=== PATIENT | female | born 1960 | race Caucasian/White ===

== ENCOUNTER 2018-03-10 13:52 | Emergency (ER) | payer SELFPAY ==
[~2018-03-10] VITALS: Ht 165.1 cm; Wt 77.1 kg
[2018-03-10] MEDS ORDERED: DEPRESSION MED (14:03)
[2018-03-10] MEDS ORDERED: NEURONTIN100 MG PO (14:03)
[2018-03-10] MEDS ORDERED: XANAX0.25 MG PO (14:04)
[2018-03-10] MEDS ORDERED: CEPHALEXIN500 M1 PO (15:11)
[2018-03-10] MEDS ORDERED: BACITRACIN28.4 GM PO (15:11)
[2018-03-10] MEDS ORDERED: NORCO 5-325 TA1 EACH PO (15:12)
[2018-03-10] MEDS ORDERED: Motrin,Rufen800 MG PO (15:12)
== END 2018-03-10 15:21 | disposition home or self-care (01) ==
LOC: ED 13:52
DX: T22.211A Burn of second degree of right forearm, initial encounter (principal); F17.200 Nicotine dependence, unspecified, uncomplicated; Z79.899 Other long term (current) drug therapy; Z88.7 Allergy status to serum and vaccine; X08.8XXA Exposure to other specified smoke, fire and flames, initial encounter; Y93.89 Activity, other specified; Y92.89 Other specified places as the place of occurrence of the external cause; Y99.9 Unspecified external cause status